=== PATIENT | male | born 1965 | race Caucasian/White ===

== ENCOUNTER 2021-12-24 09:17 | Emergency (ER) | payer OTHER, SELFPAY ==
--- NOTE | ~2021-12-24 | XR_ITS ---
EXAMINATION: XR CHEST CLINICAL INFORMATION: Cough. COMPARISON: None TECHNIQUE: 2 views of the chest were obtained. FINDINGS: No significant abnormality is noted involving the heart, lungs, mediastinum, bony thorax or soft tissues. XR/XR chest 2V IMPRESSION: No acute cardiopulmonary process.
[2021-12-24 09:19] VITALS: BP 155/88; PULSE 106; RESP 22; TEMP 36.7; O2SAT 95; BMI 28.0
--- NOTE | 2021-12-24 09:36 | ED.ASTHMA ---
HPI - Asthma General Chief Complaint: Asthma Stated Complaint: asthma/chest pains Time Seen by Provider: 12/24/21 09:36 History of Present Illness HPI Narrative: Patient complains of asthma, wheezing, shortness of breath, recent illness with cough and body aches and sore throat, he does have pain in his chest only with cough he has no pleuritic pain, he has no exertional pain and there is no other chest pain, right now he is not short of breath as he took albuterol treatment just prior to arrival from his machine Related Data Previous Rx's Medication Instructions Recorded acetaminophen 500 mg tablet 1,000 mg PO QID PRN #30 tab 12/24/21 azithromycin 250 mg tablet See Rx Instructions .ROUTE 12/24/21 (Zithromax Z-Lanre) .COMPLEX #6 tab hydrocodone-homatropine 5 mg-1.5 5 ml PO Q6H PRN #75 ml 12/24/21 mg/5 mL (5 mL) oral syrup (Hycodan) prednisone 20 mg tablet 60 mg PO DAILY 5 Days #15 tab 12/24/21 Allergies Allergy/AdvReac Type Severity Reaction Status Date / Time No Known Allergies Allergy Unverified 06/06/20 19:09 [No Known Allergies*] Review of Systems Review of Systems: Positive for productive cough, body aches, runny nose, pain and chest only with cough, frequent wheezing typical of asthma Negatives are no dizziness no weakness no headache no fainting no feeling faint no stiff neck no pleuritic chest pain no exertional chest pain no palpitations no abdominal pain no nausea vomiting or diarrhea no dysuria no leg swelling no calf pain or swelling, no skin rash, no weakness or numbness Yes all other systems are reviewed and are negative [facility] Past Medical History Source: nursing notes reviewed Medical History (Updated 12/24/21 @ 11:29 by MAGUI Cline) Asthma Back pain HTN (hypertension) Umbilical hernia Social History Social History Advance Directives: No Advance Directives Information Provided: Yes Physical Exam Vital Signs: Vital Signs: Last Vital Signs Temp 98.0 F 12/24/21 09:19 Pulse 79 12/24/21 09:55 Resp 18 12/24/21 09:55 BP 155/88 H 12/24/21 09:19 Pulse Ox 95 12/24/21 09:19 BMI result Body Mass Index 28.0 General appearance is comfortable no acute distress The eyes no redness or discharge The pharynx no redness swelling or exudate, membranes moist Neck is supple The chest has decreased breath sounds bilaterally no obvious wheezing no respiratory distress, no pain with deep breath The heart no murmur The abdomen soft nontender Extremities full range of motion x4 without any edema No calf tenderness or swelling Neuro no focal deficits Course Course Course Narrative: Patient with upper respiratory symptoms and asthma with frequent productive cough, chest pain only when he coughs, no shortness of breath now but has been using his machine frequently over the last 3 days EKG was done with normal sinus rhythm rate of 94, normal intervals, no acute ST elevations, small Q-waves were noted in 2 3 and AVF, but no acute ischemic changes EKG was reviewed with attending physician britta or agrees no evidence of acute [place], and story is not consistent with a cardiac cause, frequent productive cough body aches and only chest pain is with coughing no other chest pain Chest x-ray was negative COVID test and flu test were negative Patient got a treatment and had decreased coughing and improved respiration, on exam his lungs soundswere now clear and full no longer diminished, vital signs were all normal he was not tachycardic or tachypneic, breathing comfortably, and he was discharged with treatment for asthma and bronchitis MDM - Asthma Lab Data Labs: Lab Results 12/24/21 12/24/21 12/24/21 Range/Units 10:11 10:11 10:11 COVID-19 (INÉS) Negative (Negative) COVID-19 Clin Com See Note Influenza Type A (JOSHUA) Negative (Negative) Influenza Type B (JOSHUA) Negative (Negative) Influenza A & B Note See Note S. pyogenes GrpA JOSHUA Negative (Negative) Discharge Plan Discharge Clinical Impression: Bronchitis, Asthma Patient Disposition: Home, Self-Care Additional Instructions: COVID and flu test were negative, strep test was negative, chest x-ray was normal We are treating asthma with prednisone which reduces inflammation and the lungs We are treating bronchitis with Zithromax antibiotic You can use the narcotic cough syrup which usually helps cough, breathing steam may help to Follow with your doctor Return any time any worse condition or any concerns Prescriptions: New hydrocodone-homatropine [Hycodan] 5-1.5 mg/5 mL (5 mL) syrup 5 ml PO Q6H PRN (Reason: cough) Qty: 75 0RF Rx Instructions: Narcotic, no driving for 6 hours after taking this medication azithromycin [Zithromax Z-Lanre] 250 mg tablet See Rx Instructions .ROUTE .COMPLEX Qty: 6 0RF Rx Instructions: For 250 mg dose pack: take 500 mg today (day 1), then 250 mg for 4 days (days 2-5) prednisone 20 mg tablet 60 mg PO DAILY 5 Days Qty: 15 0RF acetaminophen 500 mg tablet 1,000 mg PO QID PRN (Reason: pain) Qty: 30 0RF Interventions: ED Discharge Assessment Last Done: 12/24/21 12:22 Discharge Date/Time: 12/24/21 12:23
--- NOTE | 2021-12-24 09:38 | ECG_ITS ---
Test Reason : CHEST PAIN Blood Pressure : / mmHG Vent. Rate : 094 BPM Atrial Rate : 094 BPM P-R Int : 156 ms QRS Dur : 092 ms QT Int : 350 ms P-R-T Axes : 023 033 018 degrees QTc Int : 437 ms Normal sinus rhythm Possible Inferior infarct , age undetermined Abnormal ECG No previous ECGs available Referred By: Donte Robles Electronically Signed By:LINSEY PENNINGTON MD
[2021-12-24] MEDS: Albuterol/Iprat 2.5/0.5MG 3 ML AMPUL.NEB INHALE (09:54)
[2021-12-24 09:55] VITALS: PULSE 79; RESP 18; O2SAT 97
[2021-12-24 10:35] LABS: IDNOW Serial# 16C4AD1C
[2021-12-24 10:36] LABS: COVID-19 Test Negative (Negative); IDNOW Serial# 08D9AD1C; Strep A Nucleic Acid Negative (Negative)
[2021-12-24 10:51] LABS: IDNOW Serial# 08D9AD1C; Influenza A Negative (Negative); Influenza B2 Negative (Negative)
[2021-12-24] MEDS: predniSONE 20 MG TABLET 60 MG PO (11:11)
== END 2021-12-24 12:23 | disposition home or self-care (01) ==
PROVIDERS: Physician Assistant Medical; Emergency Provider Emergency Medicine Emergency Medical Services; PCP Physician Assistant
DX: J40 Bronchitis, not specified as acute or chronic (principal); R07.9 Chest pain, unspecified; R06.02 Shortness of breath; Z20.822 Contact with and (suspected) exposure to COVID-19; Z79.899 Other long term (current) drug therapy
CPT/HCPCS: 36415; 71046; 87502; 87635; 87651; 93005; 94640; 99283; 99284

== ENCOUNTER 2021-12-28 11:53 | Inpatient (IN) | payer OTHER, SELFPAY ==
[2021-12-28] VITALS (8 sets, daily range): BP systolic 126–140; BP diastolic 63–79; PULSE 74–100; RESP 16–22; TEMP 36.6–37.1; O2SAT 86–98; BMI 28.0
--- NOTE | ~2021-12-28 | XR_ITS ---
EXAMINATION: CHEST 2 VIEWS CLINICAL INFORMATION: COUGH SOB . COMPARISON: . TECHNIQUE: PA and lateral views of the chest obtained. FINDINGS: The lungs are mildly hypoexpanded. No focal infiltrate, effusion, edema, or pneumothorax. Cardiac and mediastinal silhouettes are within normal limits for technique. No acute bony abnormality seen XR/XR chest 2V IMPRESSION: No evidence of acute disease
--- NOTE | ~2021-12-28 | CT_ITS ---
EXAMINATION: CT CHEST WITH CONTRAST CLINICAL INFORMATION: Cough and shortness of breath COMPARISON: None TECHNIQUE: Multidetector volumetric CT imaging of the chest was obtained after the administration of 65 mL of Omnipaque 350 intravenous contrast without immediate adverse reactions. Axial MIP volume rendering provided. Sagittal and coronal reformatted images were obtained. This CT examination was performed using dose optimization techniques as appropriate, variously including the following: *Automated exposure control *Adjustment of mA and/or kV according to patient size (this includes techniques or standardized protocols for targeted exams where dose is matched to indication/reason for exam; i.e. extremities or head) *Use of iterative reconstruction technique DLP: 337 mGy-cm FINDINGS: LUNGS: Trachea and central airway are patent. There are dependent changes in the posterior aspect of bilateral lungs. No dense consolidation is seen. 3 mm nodule right upper lobe image 5:265 MEDIASTINUM: Visualized thyroid gland appears unremarkable. No adenopathy seen in the mediastinum or michele. Normal caliber aorta. Normal heart size. No pericardial effusion.. PLEURA: There is no pleural effusion. No pleural mass or thickening. AXILLA: No lymphadenopathy. UPPER ABDOMEN: Low-attenuation liver suggesting hepatic steatosis. No acute findings otherwise seen. OSSEOUS STRUCTURES: No acute or suspicious osseous abnormality. CT/CT chest w con IMPRESSION: 1. No evidence of acute consolidation. Dependent changes in the posterior aspect of bilateral lungs. 2. Right upper lobe 3 mm nodule. According to the UPDATED 2017 Fleischner Society recommendations, the advised follow-up imaging for solid nodules < 6 mm is: LOW RISK PATIENT: No routine follow-up. HIGH RISK PATIENT: Optional CT at 12 months. Fleischner guidelines were followed. 3. Hepatic steatosis.
--- NOTE | 2021-12-28 12:39 | PC.NURSE ---
pt presents to ED after being seen here on 12/24/2021. Pt at bedside, pt sts symptoms have worsened, cough is persistent, SpO2 93% on RA, MAGUI Martini aware. Pt alert, oriented able to follow commands, wheezing audible on anterior/posterior chest, and bronchus. pt stated he has been unable to sleep due to cough.
--- NOTE | 2021-12-28 13:05 | ED.URI ---
HPI - URI/Sore Throat General Chief Complaint: Upper Respiratory Symptoms Stated Complaint: Asthma Time Seen by Provider: 12/28/21 12:27 Source: patient Mode of arrival: ambulatory Limitations: no limitations History of Present Illness HPI Narrative: 56-year-old male with history of asthma presents to ED for coughing and shortness of breath and chest pain only when he coughs. Patient was seen here on the for asthma exacerbation was discharged with steroids and cough medication but states no improvement. Patient denies any leg swelling, calf pain, coughing up blood, recent long travel, recent surgery, or pleuritic chest pain. Related Data Home Medications Medication Instructions Recorded Confirmed albuterol sulfate 90 mcg/actuation 2 puff PO Q4H PRN 12/28/21 aerosol inhaler (Ventolin HFA) amlodipine 2.5 mg tablet 1 tab PO DAILY 12/28/21 docusate sodium 100 mg capsule 2 cap PO BEDTIME 12/28/21 fluticasone propionate 230 2 puff PO BID 12/28/21 mcg-salmeterol 21 mcg/actuation HFA inhaler (Advair HFA) fluticasone propionate 50 1 spray INTRANASAL DAILY 12/28/21 mcg/actuation nasal spray,suspension levocetirizine 5 mg tablet 1 tab PO QPM 12/28/21 montelukast 10 mg tablet 1 tab PO BEDTIME 12/28/21 naproxen 500 mg tablet 500 mg PO BID 12/28/21 quetiapine 100 mg tablet 1 tab PO BEDTIME 12/28/21 rosuvastatin 10 mg tablet 1 tab PO BEDTIME 12/28/21 rosuvastatin 20 mg tablet 1 tab PO BEDTIME 12/28/21 topiramate 50 mg tablet 1 tab PO BEDTIME 12/28/21 umeclidinium 62.5 mcg/actuation 1 puff PO DAILY 12/28/21 blister powder for inhalation (Incruse Ellipta) Previous Rx's Medication Instructions Recorded acetaminophen 500 mg tablet 1,000 mg PO QID PRN #30 tab 12/24/21 azithromycin 250 mg tablet See Rx Instructions .ROUTE 12/24/21 (Zithromax Z-Lanre) .COMPLEX #6 tab hydrocodone-homatropine 5 mg-1.5 5 ml PO Q6H PRN #75 ml 12/24/21 mg/5 mL (5 mL) oral syrup (Hycodan) prednisone 20 mg tablet 60 mg PO DAILY 5 Days #15 tab 12/24/21 Allergies Allergy/AdvReac Type Severity Reaction Status Date / Time No Known Allergies Allergy Unverified 06/06/20 19:09 [No Known Allergies*] Review of Systems Review of Systems: Coughing with white phlegm. Shortness of breath Yes all other systems are reviewed and are negative [facility] Past Medical History Medical History Asthma Back pain HTN (hypertension) Umbilical hernia Social History Social History Advance Directives: No Advance Directives Information Provided: No Physical Exam Vital Signs: Vital Signs: Last Vital Signs Temp 98.1 F 12/28/21 16:58 Pulse 88 12/28/21 16:58 Resp 16 12/28/21 16:58 BP 126/63 12/28/21 16:58 Pulse Ox 93 12/28/21 16:58 BMI result Body Mass Index 28.0 Const: General: cooperative, healthy appearing, comfortable, no acute distress, well developed, alert, awake and Physically active Orientation/consciousness: oriented to time and patient oriented x3 HEENT: Head: Yes normal to inspection, Yes No palpable skull fracture present, Yes normocephalic and Yes atraumatic Eyes: General: appearance normal, both eyes and all related structures Neck: Neck: Yes normal visual inspection, Yes full ROM, Yes no lymphadenopathy, Yes no meningeal signs, Yes trachea midline, Yes supple and No anterior neck swelling Chest: Chest palpation & inspection: normal inspection of the chest and normal palpation of entire chest wall Resp: Effort & Inspection: normal respiratory effort and able to speak in complete sentences Auscultation: wheezes expiratory wheezes (Diffuse) Cardio: Jugular venous distension: no JVD Heart sounds: S1 normal heart sound present and S2 normal heart sound present GI: Inspection: Yes normal to inspection and No abdominal wall ecchymosis Palpation (GI): Soft to palpation, not firm, nontender, no guarding and not rigid : General: No CVA tenderness and Yes no CVA tenderness Back/Spine/Pelvis: Back: no CVA tenderness, No CVA tenderness and No back tenderness Skin: General skin exam: no rashes or lesions noted, elasticity normal and turgor normal Neuro: General: oriented to time, patient oriented x3, gait normal and no meningeal signs Cranial nerves: Yes CN's II-XII intact bilaterally Extrem: Other: Bilateral lower extremities negative for swelling, pitting edema, or calf tenderness General: Yes normal to inspection and Yes full ROM Psych: Appearance: grossly normal, well kempt and not disheveled Course Course Course Narrative: O2 saturation dropped wants to 93%. On room air at rest O2 saturation on the monitor 97 98%. Chest x-ray initially normal. Will do SARS. Labs ordered. Albuterol, magnesium, Solu-Medrol ordered. We will re-evaluate. Reevaluation(s) Reevaluation #1: Patient to be admitted for asthma exacerbation. Patient multiple episodes of desaturation at rest to 92 and 93% with constant wheezing. On ambulatory O2 saturation oxygen went down to 94%. Once patient's cough oxygen desaturation to 92%. EKG negative STEMI. Troponin negative. BNP negative for heart failure. Chest x-ray normal. D-dimer and Wells score 0. Hospitalist recommend chest CT to check for interstitial disease. Patient admitted. Patient's SARS swab negative Time: 18:39 MDM - URI/Sore Throat MDM Narrative Medical decision making narrative: Asthma exacerbation Lab Data Result diagrams: 12/28/21 13:24 12/28/21 14:09 Labs: Lab Results 12/28/21 12/28/21 12/28/21 Range/Units 13:24 13:24 13:24 WBC 8.3 (4.8-10.8) X10*3/uL RBC 5.47 (4.60-5.80) X10*6/uL Hgb 16.6 (14.0-18.0) g/dl Hct 48.8 (42.0-52.0) % MCV 89.2 (80.0-98.0) fL MCH 30.3 (27.0-33.0) pg MCHC 34.0 (31.0-36.0) g/dl RDW 12.8 (11.0-16.0) % Plt Count 228 (160-400) X10*3/uL MPV 9.9 (9.4-12.4) fL Immature Gran % (Auto) 0.5 H (0.0-0.4) % Neut % (Auto) 91.6 H (45-73) % Lymph % (Auto) 5.9 L (20-40) % [place] % (Auto) 1.9 L (2-11) % Eos % (Auto) 0.0 (0-4) % Baso % (Auto) 0.1 (0-2) % Lymph # (Auto) 0.5 L (1.2-4.9) X10*3/uL [place] # (Auto) 0.2 (0.1-1.2) X10*3/uL Eos # (Auto) 0.0 (0.0-0.4) X10*3/uL Baso # (Auto) 0.0 (0.0-0.2) X10*3/uL Abs Immat Gran (auto) 0.04 H (0.00-0.03) X10*3/uL Absolute Neuts (auto) 7.6 (2.0-8.3) x10*3/uL Absolute Nucleated RBC 0.000 (0.0-0.012) X10*3/uL Nucleated RBC % (auto) 0.0 (0.0-0.2) /100WBC Smear Tech's Comments VERIFIED PT (9.9-13.0) SEC INR (0.9-1.1) APTT (24.1-38.0) SEC D-Dimer High Sensitivty NG/ML Sodium (135-145) mmol/L Potassium (3.3-5.1) mmol/L Chloride (96-108) mmol/L Carbon Dioxide (22-29) mmol/L Anion Gap (12-20) BUN (9-16) mg/dL Creatinine (0.5-1.4) mg/dL Estim Creat Clear Calc Estimated GFR Random Glucose (60-115) mg/dL Calcium (8.4-10.2) mg/dL Total Bilirubin (0.0-1.0) mg/dL AST (5-37) U/L ALT (0-40) U/L Alkaline Phosphatase (39-117) U/L Troponin I High Sens < 3.5 (<3.5-35.0) ng/L B-Natriuretic Peptide 29 (<100) pg/mL Total Protein (6.5-8.0) g/dL Albumin (3.5-5.0) g/dL Influenza Type A (PCR) NEGATIVE (Negative) Influenza Type B (PCR) NEGATIVE (Negative) RSV RNA Qual (PCR) NEGATIVE (Negative) SARS-CoV-2 RNA (RT-PCR) NEGATIVE (Negative) 12/28/21 12/28/21 Range/Units 13:24 14:09 WBC (4.8-10.8) X10*3/uL RBC (4.60-5.80) X10*6/uL Hgb (14.0-18.0) g/dl Hct (42.0-52.0) % MCV (80.0-98.0) fL MCH (27.0-33.0) pg MCHC (31.0-36.0) g/dl RDW (11.0-16.0) % Plt Count (160-400) X10*3/uL MPV (9.4-12.4) fL Immature Gran % (Auto) (0.0-0.4) % Neut % (Auto) (45-73) % Lymph % (Auto) (20-40) % [place] % (Auto) (2-11) % Eos % (Auto) (0-4) % Baso % (Auto) (0-2) % Lymph # (Auto) (1.2-4.9) X10*3/uL [place] # (Auto) (0.1-1.2) X10*3/uL Eos # (Auto) (0.0-0.4) X10*3/uL Baso # (Auto) (0.0-0.2) X10*3/uL Abs Immat Gran (auto) (0.00-0.03) X10*3/uL Absolute Neuts (auto) (2.0-8.3) x10*3/uL Absolute Nucleated RBC (0.0-0.012) X10*3/uL Nucleated RBC % (auto) (0.0-0.2) /100WBC Smear Tech's Comments PT 11.8 (9.9-13.0) SEC INR 1.0 (0.9-1.1) APTT 26.9 (24.1-38.0) SEC D-Dimer High Sensitivty < 150 NG/ML Sodium 138 (135-145) mmol/L Potassium 4.8 (3.3-5.1) mmol/L Chloride 108 (96-108) mmol/L Carbon Dioxide 21 L (22-29) mmol/L Anion Gap 14 (12-20) BUN 13 (9-16) mg/dL Creatinine 1.11 (0.5-1.4) mg/dL Estim Creat Clear Calc 78.8 Estimated GFR > 60 Random Glucose 139 H (60-115) mg/dL Calcium 9.3 (8.4-10.2) mg/dL Total Bilirubin 0.8 (0.0-1.0) mg/dL AST 45 H (5-37) U/L ALT 84 H (0-40) U/L Alkaline Phosphatase 134 H (39-117) U/L Troponin I High Sens (<3.5-35.0) ng/L B-Natriuretic Peptide (<100) pg/mL Total Protein 7.5 (6.5-8.0) g/dL Albumin 4.6 (3.5-5.0) g/dL Influenza Type A (PCR) (Negative) Influenza Type B (PCR) (Negative) RSV RNA Qual (PCR) (Negative) SARS-CoV-2 RNA (RT-PCR) (Negative) ECG Data Interpretation: Normal sinus rhythm. Normal EKG. Ventricular rate 85. Pr interval 154. QRS 86 pr QTC 428. Negative STEMI Discharge Plan Discharge Clinical Impression: Asthma Patient Disposition: Admitted As Inpatient
[2021-12-28] MEDS: Albuterol/Iprat 2.5/0.5MG 3 ML AMPUL.NEB INHALE ×2 (13:12→21:01)
[2021-12-28] MEDS: guaiFEN/Codeine SF 200/20/10ML 10 ML LIQUID PO (13:26)
[2021-12-28] MEDS: methylPREDNISolone Sod Succ 125 MG/2 ML VIAL IVPUSH (13:29)
[2021-12-28 13:31] LABS: Basophils Percent Auto 0.1 % (0-2); Hematocrit 48.8 % (42.0-52.0); Hemoglobin 16.6 g/dl (14.0-18.0); Imm Gran Abs Auto 0.04 X10*3/uL (0.00-0.03); Imm Gran Pct Auto 0.5 % (0.0-0.4); Lymphocytes Absolute Auto 0.5 X10*3/uL (1.2-4.9); Lymphocytes Percent Auto 5.9 % (20-40); MANUAL DIFF FLAG SCAN; Mean Corpuscular Hemoglobin 30.3 pg (27.0-33.0); Mean Corpuscular Volume 89.2 fL (80.0-98.0); Mean Platelet Volume 9.9 fL (9.4-12.4); Monocytes Absolute Auto 0.2 X10*3/uL (0.1-1.2); Monocytes Percent Auto 1.9 % (2-11); Neutrophils Absolute Auto 7.6 x10*3/uL (2.0-8.3); Neutrophils Percent Auto 91.6 % (45-73); Platelet Count 228 X10*3/uL (160-400); Red Blood Count 5.47 X10*6/uL (4.60-5.80); Red Cell Distribution Width 12.8 % (11.0-16.0); SCAN SMEAR FLAG 1; White Blood Count 8.3 X10*3/uL (4.8-10.8)
[2021-12-28 13:36] LABS: Prothrombin Time 11.8 SEC (9.9-13.0)
[2021-12-28 13:39] LABS: Partial Thromboplastin Time 26.9 SEC (24.1-38.0)
--- NOTE | 2021-12-28 13:41 | ECG_ITS ---
Test Reason : SOB Blood Pressure : / mmHG Vent. Rate : 085 BPM Atrial Rate : 085 BPM P-R Int : 154 ms QRS Dur : 086 ms QT Int : 360 ms P-R-T Axes : 028 025 020 degrees QTc Int : 428 ms Normal sinus rhythm Normal ECG When compared with ECG of 24-DEC-2021 10:19, No significant change was found Referred By: Gregorio Martini Electronically Signed By:Sly Galan
[2021-12-28] MEDS: Magnesium Sulfate/H2O 2 GM/50 ML PIGGYBACK IV (13:42)
[2021-12-28 13:48] LABS: SLIDE REVIEW VERIFIED
[2021-12-28 13:53] LABS: B Type Natriuretic Peptide 29 pg/mL (<100); Troponin-I High Sensitivity < 3.5 ng/L (<3.5-35.0)
[2021-12-28 14:19] LABS: Influenza A PCR NEGATIVE (Negative); Influenza B PCR NEGATIVE (Negative); Resp Syncy Virus RNA Qual PCR NEGATIVE (Negative); SARS COV2 PCR INHOUSE NEGATIVE (Negative)
[2021-12-28 14:30] LABS: Alanine Aminotransferase 84 U/L (0-40); Albumin Level 4.6 g/dL (3.5-5.0); Alkaline Phosphatase 134 U/L (39-117); Anion Gap 14 (12-20); Aspartate Amino Transferase 45 U/L (5-37); Bilirubin Total 0.8 mg/dL (0.0-1.0); Blood Urea Nitrogen 13 mg/dL (9-16); Calcium 9.3 mg/dL (8.4-10.2); Carbon Dioxide 21 mmol/L (22-29); Chloride 108 mmol/L (96-108); Creatinine Clr Calc Pharmacy 78.8; Estimated Glomerular Filt Rate > 60; Glucose Random 139 mg/dL (60-115); Potassium 4.8 mmol/L (3.3-5.1); Sodium 138 mmol/L (135-145); Total Protein 7.5 g/dL (6.5-8.0)
[2021-12-28 14:53] LABS: D Dimer High Sensitivity < 150 NG/ML
[2021-12-28] MEDS: Albuterol Sulfate (0.083%) 2.5 MG/3 ML VIAL.NEB 5 MG INHALE (15:02)
--- NOTE | 2021-12-28 18:20 | PM.IMHP ---
History of Present Illness Date of Service: 12/28/21 Chief Complaint: Coughing spells, wheezing A 56 years old male with recent diagnosis of asthma post COVID vaccine who presents to the hospital for 2nd time complaining of dyspnea wheezing with persistent cough. The patient reported he has been having symptoms of asthma since he talk the COVID vaccine back in January 2022 and has been using steroids, and inhalers at home with no relief as he is having cough that has been persistent for the last 2 weeks associated with dyspnea on exertion and shortness of breath. He denies any fever, chills, chest pain, palpitation, nausea or vomiting or change in bowel habit, no urinary symptoms. Today he came to the hospital as his symptoms got worse and he cannot sleep because of all the coughing he is having. In the emergency he received breathing treatment with no improvement so he was admitted for observation. Review of Systems Review of Systems: No fever, chills but reports feeling distressed No chest pain, palpitation Reporting dyspnea on exertion and recurrent bouts of coughing No abdominal pain, nausea or vomiting No urinary symptoms No any rash or wounds PMFSH Medical History Asthma Back pain HTN (hypertension) Umbilical hernia Social History Advance Directives: No Advance Directives Information Provided: No Meds Allergies Allergy/AdvReac Type Severity Reaction Status Date / Time No Known Allergies Allergy Unverified 06/06/20 19:09 [No Known Allergies*] Active Medications: Current Medications Pharmacy Consult (Consult Rx Perform Med Rec) 1 each MISCELLANE ONCE PRN PRN Reason: Consult order Home Medications Medication Instructions Recorded Confirmed Last Taken Type acetaminophen 650 mg 1 tab PO BID 12/28/21 12/28/21 12/28/21 History tablet,extended release (Mapap Arthritis Pain) albuterol sulfate 3 ml INHALATION Q6H PRN 12/28/21 12/28/21 Unknown History albuterol sulfate 90 mcg/actuation 2 puff PO Q4H PRN 12/28/21 12/28/21 Unknown History aerosol inhaler (Ventolin HFA) amlodipine 2.5 mg tablet 1 tab PO DAILY 12/28/21 12/28/21 12/28/21 History docusate sodium 100 mg capsule 2 cap PO BEDTIME 12/28/21 12/28/21 12/27/21 History esomeprazole magnesium 40 mg 1 cap PO DAILY@0630 12/28/21 12/28/21 12/28/21 History capsule,delayed release fluticasone propionate 230 2 puff PO BID 12/28/21 12/28/21 12/28/21 History mcg-salmeterol 21 mcg/actuation HFA inhaler (Advair HFA) fluticasone propionate 50 1 spray INTRANASAL DAILY 12/28/21 12/28/21 12/28/21 History mcg/actuation nasal spray,suspension gabapentin 300 mg capsule 1 cap PO BID 12/28/21 12/28/21 12/28/21 History hydrocortisone 2.5 % topical cream 1 appl SC TID PRN 12/28/21 12/28/21 Unknown History with perineal applicator ketotifen fumarate 0.025 % (0.035 1 drp OPHTHALMIC (EYE) BID 12/28/21 12/28/21 12/28/21 History %) eye drops levocetirizine 5 mg tablet 1 tab PO BEDTIME 12/28/21 12/28/21 12/27/21 History melatonin 3 mg tablet 1 tab PO BEDTIME 12/28/21 12/28/21 12/27/21 History montelukast 10 mg tablet 1 tab PO BEDTIME 12/28/21 12/28/21 12/27/21 History naproxen 500 mg tablet 500 mg PO BID 12/28/21 12/28/21 12/28/21 History quetiapine 100 mg tablet 1 tab PO BEDTIME 12/28/21 12/28/21 12/27/21 History ramelteon 8 mg tablet 8 mg PO BEDTIME PRN 12/28/21 12/28/21 Unknown History rosuvastatin 20 mg tablet 1 tab PO BEDTIME 12/28/21 12/28/21 12/27/21 History sertraline 50 mg tablet 50 mg PO DAILY 12/28/21 12/28/21 12/28/21 History simethicone 125 mg capsule (Gas 1 cap PO Q6H PRN 12/28/21 12/28/21 Unknown History Relief Extra Strength) topiramate 50 mg tablet 1 tab PO BEDTIME 12/28/21 12/28/21 12/27/21 History umeclidinium 62.5 mcg/actuation 1 puff PO DAILY 12/28/21 12/28/21 12/28/21 History blister powder for inhalation (Incruse Ellipta) Physical Exam Vital Signs and Narrative: Vital Signs: Last Vital Signs Temp 98.1 F 12/28/21 16:58 Pulse 88 12/28/21 16:58 Resp 16 12/28/21 16:58 BP 126/63 12/28/21 16:58 Pulse Ox 93 12/28/21 16:58 BMI result Body Mass Index 28.0 Const: Other: Constitutional : Alert, oriented, not in distress Neck : Normal inspection, Supple Cardiovascular : RRR, no JVP, no lower extremity edema Respiratory : fair bilateral air entry, very minimal basal crackles, scattered expiratory wheezes Gastrointestinal: soft, lax, Normal bowel sounds, Non tender Skin : Warm, Dry Neurological : Alert & oriented x3, No focal deficit , CN 2-12 within normal Results Labs CBC and Chem 7: 12/28/21 13:24 12/29/21 07:14 Labs: Laboratory Results - last 24 hr 12/28/21 12/28/21 12/28/21 13:24 13:24 13:24 MCV 89.2 MCH 30.3 MCHC 34.0 RDW 12.8 Plt Count 228 MPV 9.9 Immature Gran % (Auto) 0.5 H Neut % (Auto) 91.6 H Lymph % (Auto) 5.9 L [place] % (Auto) 1.9 L Eos % (Auto) 0.0 Baso % (Auto) 0.1 Lymph # (Auto) 0.5 L [place] # (Auto) 0.2 Eos # (Auto) 0.0 Baso # (Auto) 0.0 Abs Immat Gran (auto) 0.04 H Absolute Neuts (auto) 7.6 Absolute Nucleated RBC 0.000 Nucleated RBC % (auto) 0.0 Smear Tech's Comments VERIFIED PT INR APTT D-Dimer High Sensitivty Anion Gap Estim Creat Clear Calc Estimated GFR Random Glucose Calcium Total Bilirubin AST ALT Alkaline Phosphatase Troponin I High Sens < 3.5 B-Natriuretic Peptide 29 Total Protein Albumin Influenza Type A (PCR) NEGATIVE Influenza Type B (PCR) NEGATIVE RSV RNA Qual (PCR) NEGATIVE SARS-CoV-2 RNA (RT-PCR) NEGATIVE 12/28/21 12/28/21 13:24 14:09 MCV MCH MCHC RDW Plt Count MPV Immature Gran % (Auto) Neut % (Auto) Lymph % (Auto) [place] % (Auto) Eos % (Auto) Baso % (Auto) Lymph # (Auto) [place] # (Auto) Eos # (Auto) Baso # (Auto) Abs Immat Gran (auto) Absolute Neuts (auto) Absolute Nucleated RBC Nucleated RBC % (auto) Smear Tech's Comments PT 11.8 INR 1.0 APTT 26.9 D-Dimer High Sensitivty < 150 Anion Gap 14 Estim Creat Clear Calc 78.8 Estimated GFR > 60 Random Glucose 139 H Calcium 9.3 Total Bilirubin 0.8 AST 45 H ALT 84 H Alkaline Phosphatase 134 H Troponin I High Sens B-Natriuretic Peptide Total Protein 7.5 Albumin 4.6 Influenza Type A (PCR) Influenza Type B (PCR) RSV RNA Qual (PCR) SARS-CoV-2 RNA (RT-PCR) Imaging Radiologist's Impressions: Impressions Chest X-Ray 12/28/21 12:12 IMPRESSION: No evidence of acute disease Assessment and Plan (1) Persistent dry cough: Status: Acute (2) Dyspnea on exertion: Status: Acute (3) Wheezes: Status: Acute Plan A 56 years old male with recent diagnosis of asthma post COVID vaccine who presents to the hospital for 2nd time complaining of dyspnea wheezing with persistent cough. Persistent cough, dyspnea and wheezing Seems to be related to reactive airway disease, inflammatory process You do CT scan the with contrast Your treated with steroids, bronchodilator nebulizers B get pulmonology evaluation Cough medication with codeine and Tessalon Continue the rest of home medication once med reconciliation done DVT PPX Lovenox Quality Stroke Does the patient have a stroke diagnosis?: No VTE Prior VTE?: No VTE Risk Level:: Medical - moderate - high VTE Device Contraindication: Treatment Not Indicated VTE Drug Contraindication: N/A - Med Ordered
[2021-12-28] MEDS: iohexoL 350 MG/ML 100 ML INFUS..BTL IV (18:34)
--- NOTE | 2021-12-28 19:08 | PHA.MEDREC ---
Pharmacy Consult ? Medication Reconciliation Pharmacy has completed the medication reconciliation. Spoke with patient via [facility] in [facility]. Pt has 1 day left of zithromax and prednisone ( 5 day course). Pt states he is on Ramelteon, although no claim history. He states his crestor was recently alont with seroquel. Gabapentin has not been filled since june but patient states he is still taking.
[2021-12-28] MEDS: guaiFEN/Codeine SF 200/20/10ML 10 ML LIQUID 5 ML PO (20:27)
[2021-12-28] MEDS: Enoxaparin Sodium 40 MG/0.4 ML SYRINGE SUBCUT (20:28)
[2021-12-28] MEDS: Benzonatate 100 MG CAPSULE 200 MG PO (20:28)
[2021-12-29 00:33] VITALS: BP 107/56; PULSE 86; RESP 16; TEMP 36.5; O2SAT 96
[2021-12-29] MEDS: guaiFEN/Codeine SF 200/20/10ML 10 ML LIQUID 5 ML PO ×3 (01:58→10:14)
[2021-12-29] MEDS: 0.9 % Sodium Chloride Flush 3 ML SYRINGE IVFLUSH ×2 (01:59→08:57)
[2021-12-29 04:21] VITALS: BP 134/73; PULSE 76; RESP 16; TEMP 36.6; O2SAT 94
[2021-12-29 07:46] LABS: Anion Gap 16 (12-20); Blood Urea Nitrogen 15 mg/dL (9-16); Calcium 9.9 mg/dL (8.4-10.2); Carbon Dioxide 25 mmol/L (22-29); Chloride 106 mmol/L (96-108); Creatinine Clr Calc Pharmacy 75.4; Estimated Glomerular Filt Rate > 60; Glucose Random 121 mg/dL (60-115); Potassium 5.1 mmol/L (3.3-5.1); Sodium 142 mmol/L (135-145)
[2021-12-29] MEDS: Albuterol/Iprat 2.5/0.5MG 3 ML AMPUL.NEB INHALE ×2 (08:36→11:34)
[2021-12-29 08:37] VITALS: PULSE 91; RESP 18; O2SAT 99
[2021-12-29 08:50] VITALS: BP 127/64; PULSE 89; RESP 14; TEMP 36.4; O2SAT 94
[2021-12-29] MEDS: Benzonatate 100 MG CAPSULE 200 MG PO (08:52)
[2021-12-29] MEDS: methylPREDNISolone Sod Succ 40 MG/ML VIAL IVPUSH (08:52)
[2021-12-29] MEDS: Gabapentin 300 MG CAPSULE PO (08:52)
[2021-12-29] MEDS: predniSONE 20 MG TABLET 60 MG PO (08:52)
[2021-12-29] MEDS: amLODIPine Besylate 2.5 MG TABLET PO (08:52)
[2021-12-29] MEDS: NaPROXEN 500 MG TABLET PO (08:52)
[2021-12-29] MEDS: Sertraline HCL 50 MG TABLET PO (08:52)
[2021-12-29] MEDS: Ketotifen Fumarate 0.025% Oph 5 ML DRPBTL 1 DROP EYE-BOTH (10:14)
[2021-12-29] MEDS: Fluticasone Propionate Nasal 16 GM SPRAY 1 SPRAY NOSTRIL-B (10:14)
[2021-12-29 11:36] VITALS: PULSE 84; RESP 18; O2SAT 96
--- NOTE | 2021-12-29 12:47 | PM.DS ---
DS: Providers Provider Date of Service: 12/29/21 Date of admission: 12/28/21 18:15 Primary care physician: Unknown Physician Consults: 12/28/21 18:15 Consult to Pulmonology Routine Consulting Provider: Chiara Pereira Reason for consultation: Persistent cough, asthma like symptoms post COVID vaccine DS: Diagnosis Discharge Diagnosis (1) Persistent dry cough: Status: Acute (2) Dyspnea on exertion: Status: Acute (3) Wheezes: Status: Acute DS: Summary Hospital Course Hospital Course: Admission note HPI A 56 years old male with recent diagnosis of asthma post COVID vaccine who presents to the hospital for 2nd time complaining of dyspnea wheezing with persistent cough.? The patient reported he has been having symptoms of asthma since he talk the COVID vaccine back in January 2022 and has been using steroids, and inhalers at home with no relief as he is having cough that has been persistent for the last 2 weeks associated with dyspnea on exertion and shortness of breath.? He denies any fever, chills, chest pain, palpitation, nausea or vomiting or change in bowel habit, no urinary symptoms.? Today he came to the hospital as his symptoms got worse and he cannot sleep because of all the coughing he is having. In the emergency he received breathing treatment with no improvement so he was admitted for observation. Hospital course The patient was admitted for observation for persistent cough and wheezing. He was treated with IV steroids, bronchodilator nebulizers and cough medication with good response as the cough improved a little in the wheezes resolved. He maintained oxygen level stable on room. Discussed with pulmonology specialist who recommended outpatient follow-up with pulmonology for pulmonary function test. Time Spent with Patient Time attestation: Total time spent providing and/or coordinating discharge services: Discharge coordination time: Less than 30 minutes Quality: Safe Use of Opioids Does Pt have an Active Cancer Diagnosis on the Problem List?: No Quality: Stroke Does the patient have a stroke diagnosis?: No Physical Exam Vital Signs: Vital Signs: Last Vital Signs Temp 97.6 F 12/29/21 08:50 Pulse 84 12/29/21 11:36 Resp 18 12/29/21 11:36 BP 127/64 12/29/21 08:50 Pulse Ox 94 12/29/21 08:50 BMI result Body Mass Index 28.0 Const: Other: Constitutional : Alert, oriented, not in distress Neck : Normal inspection, Supple Cardiovascular : RRR, no JVP, no lower extremity edema Respiratory : fair bilateral air entry, no crackles, no wheezes or rhonchi but has recurrent episodes of cough Gastrointestinal: soft, lax, Normal bowel sounds, Non tender Skin : Warm, Dry Neurological : Alert & oriented x3, No focal deficit , CN 2-12 within normal DS: Data Data Completed and Pending Labs on day of discharge: Laboratory Results - last 24 hr 12/28/21 12/28/21 12/28/21 13:24 13:24 13:24 WBC 8.3 RBC 5.47 Hgb 16.6 Hct 48.8 MCV 89.2 MCH 30.3 MCHC 34.0 RDW 12.8 Plt Count 228 MPV 9.9 Immature Gran % (Auto) 0.5 H Neut % (Auto) 91.6 H Lymph % (Auto) 5.9 L [place]ois % (Auto) 1.9 L Eos % (Auto) 0.0 Baso % (Auto) 0.1 Lymph # (Auto) 0.5 L [place] # (Auto) 0.2 Eos # (Auto) 0.0 Baso # (Auto) 0.0 Abs Immat Gran (auto) 0.04 H Absolute Neuts (auto) 7.6 Absolute Nucleated RBC 0.000 Nucleated RBC % (auto) 0.0 Smear Tech's Comments VERIFIED PT INR APTT D-Dimer High Sensitivty Sodium Potassium Chloride Carbon Dioxide Anion Gap BUN Creatinine Estim Creat Clear Calc Estimated GFR Random Glucose Calcium Total Bilirubin AST ALT Alkaline Phosphatase Troponin I High Sens < 3.5 B-Natriuretic Peptide 29 Total Protein Albumin Influenza Type A (PCR) NEGATIVE Influenza Type B (PCR) NEGATIVE RSV RNA Qual (PCR) NEGATIVE SARS-CoV-2 RNA (RT-PCR) NEGATIVE 12/28/21 12/28/21 12/29/21 13:24 14:09 07:14 WBC RBC Hgb Hct MCV MCH MCHC RDW Plt Count MPV Immature Gran % (Auto) Neut % (Auto) Lymph % (Auto) Dubois % (Auto) Eos % (Auto) Baso % (Auto) Lymph # (Auto) Dubois # (Auto) Eos # (Auto) Baso # (Auto) Abs Immat Gran (auto) Absolute Neuts (auto) Absolute Nucleated RBC Nucleated RBC % (auto) Smear Tech's Comments PT 11.8 INR 1.0 APTT 26.9 D-Dimer High Sensitivty < 150 Sodium 138 142 Potassium 4.8 5.1 Chloride 108 106 Carbon Dioxide 21 L 25 Anion Gap 14 16 BUN 13 15 Creatinine 1.11 1.16 Estim Creat Clear Calc 78.8 75.4 Estimated GFR > 60 > 60 Random Glucose 139 H 121 H Calcium 9.3 9.9 D Total Bilirubin 0.8 AST 45 H ALT 84 H Alkaline Phosphatase 134 H Troponin I High Sens B-Natriuretic Peptide Total Protein 7.5 Albumin 4.6 Influenza Type A (PCR) Influenza Type B (PCR) RSV RNA Qual (PCR) SARS-CoV-2 RNA (RT-PCR) Discharge Plan Discharge Patient Disposition: Home, Self-Care Discharge Diagnosis: Persistent cough, asthma attack Referrals: Physician,Unknown J [Primary Care Provider] - 1 Week Discharge Medications: New benzonatate 100 mg Capsule 200 mg PO TID Qty: 60 0RF codeine-guaifenesin 10-100 mg/5 mL Liquid 5 ml PO Q4H Qty: 237 0RF Continued amlodipine 2.5 mg tablet 1 tab PO DAILY 0RF quetiapine 100 mg tablet 1 tab PO BEDTIME 0RF docusate sodium 100 mg capsule 2 cap PO BEDTIME 0RF montelukast 10 mg tablet 1 tab PO BEDTIME 0RF albuterol sulfate [Ventolin HFA] 90 mcg/actuation HFA aerosol inhaler 2 puff PO Q4H PRN (Reason: wheezing) 0RF fluticasone propionate 50 mcg/actuation spray,suspension 1 spray intranasal DAILY 0RF naproxen 500 mg tablet 500 mg PO BID 0RF rosuvastatin 20 mg tablet 1 tab PO BEDTIME 0RF topiramate 50 mg tablet 1 tab PO BEDTIME 0RF Advair HFA 230-21 mcg/actuation HFA aerosol inhaler 2 puff PO BID 0RF levocetirizine 5 mg tablet 1 tab PO BEDTIME 0RF Incruse Ellipta 62.5 mcg/actuation blister with device 1 puff PO DAILY 0RF albuterol sulfate 2.5 mg /3 mL (0.083 %) solution for nebulization 3 ml inhalation Q6H PRN (Reason: wheezing) 0RF ketotifen fumarate 0.025 % (0.035 %) drops 1 drp ophthalmic (eye) BID 0RF simethicone [Gas Relief Extra Strength] 125 mg capsule 1 cap PO Q6H PRN (Reason: Indigestion) 0RF melatonin 3 mg tablet 1 tab PO BEDTIME 0RF acetaminophen [Mapap Arthritis Pain] 650 mg tablet extended release 1 tab PO BID 0RF hydrocortisone 2.5 % cream with perineal applicator [address] TID PRN (Reason: Hemorrhoids) 0RF esomeprazole magnesium 40 mg capsule,delayed release(DR/EC) 1 cap PO DAILY@0630 0RF gabapentin 300 mg capsule 1 cap PO BID 0RF sertraline 50 mg Tablet 50 mg PO DAILY 0RF ramelteon 8 mg Tablet 8 mg PO BEDTIME PRN (Reason: Sleep) 0RF azithromycin [Zithromax Z-Lanre] 250 mg tablet See Rx Instructions .ROUTE .COMPLEX Qty: 6 0RF Rx Instructions: For 250 mg dose pack: take 500 mg today (day 1), then 250 mg for 4 days (days 2-5) until 12/29/21 prednisone 20 mg tablet 60 mg PO DAILY 5 Days Qty: 15 0RF Rx Instructions: until 12/29/21 Discharge Orders: Discharge Order (Routine); Ordered 12/29/21 Ordered By: Umair Rosenthal Diet: advance to usual diet Activity on Discharge: As tolerated Stand Alone Forms: Patient Portal Discharge page Care Plan Goals: Read below Health Concerns: Read below Plan of Treatment: Read below Assessment: You were admitted to the hospital for observation of asthma attack and persistent cough. Treated with nebulizers, steroids and cough medication with fair response as you were evaluated by lung specialist who recommended outpatient follow-up to do pulmonary function test.
[2021-12-29 12:48] VITALS: BP 146/73; PULSE 91; RESP 16; TEMP 36.8; O2SAT 94
--- NOTE | 2021-12-29 13:31 | P.CONPL_ITS ---
History of Present Illness History of Present Illness Consult date: 12/29/21 Requesting physician: Umair Rosenthal Chief complaint: Pesistent cough, shortness of breath Narrative: Patient has left before being physically evaluated. Chart and imaging reviewed. 56-year-old gentleman, with no prior pulmonary history before January of 2021 when he has received his COVID vaccine and after that has developed what appears to be reactive airway disease symptomatic with nonproductive cough treated with inhaled corticosteroids and bronchodilators with suboptimal control of his symptoms. His CT chest from this admission shows bilateral 3 mm and under pulmonary nodules and otherwise clear lungs. Review of Systems Review of Systems: Yes Other ( Unable to review as patient has left before actual evaluation) [facility] Past Medical History Medical History Asthma Back pain HTN (hypertension) Umbilical hernia Meds Allergies Allergy/AdvReac Type Severity Reaction Status Date / Time No Known Allergies Allergy Unverified 06/06/20 19:09 [No Known Allergies*] Active Medications: Current Medications Acetaminophen (Acetaminophen 325 Mg Tablet) 650 mg PO Q6H PRN PRN Reason: Pain, Mild (Pain Scale 1-3) Albuterol Sulfate (Albuterol Sulfate (0.083%) 2.5 Mg/3 Ml Vial.Neb) 2.5 mg INHALE Q4H PRN PRN Reason: Wheezing Albuterol/Ipratropium (Albuterol/Iprat 2.5/0.5mg 3 Ml Ampul.Neb) 3 ml INHALE RQ4H WHILE AWAKE [facility] Last Admin: 12/29/21 11:34 Dose: 3 ml Documented by: Amlodipine Besylate (Amlodipine Besylate 2.5 Mg Tablet) 2.5 mg PO DAILY [facility]; Protocol Last Admin: 12/29/21 08:52 Dose: 2.5 mg Documented by: Benzonatate (Benzonatate 100 Mg Capsule) 200 mg PO TID [facility] Last Admin: 12/29/21 08:52 Dose: 200 mg Documented by: Docusate Sodium (Docusate Sodium 100 Mg Capsule) 200 mg PO BEDTIME [facility] Enoxaparin Sodium (Enoxaparin Sodium 40 Mg/0.4 Ml Syringe) 40 mg SUBCUT Q24H [facility] Last Admin: 12/28/21 20:28 Dose: 40 mg Documented by: Fluticasone Propionate (Fluticasone Propionate Nasal 16 Gm [place]) 1 spray NOSTRIL-B DAILY [facility] Last Admin: 12/29/21 10:14 Dose: 1 spray Documented by: Gabapentin (Gabapentin 300 Mg Capsule) 300 mg PO BID [facility] Last Admin: 12/29/21 08:52 Dose: 300 mg Documented by: Guaifenesin/Codeine Phosphate (Guaifen/Codeine Sf 200/20/10ml 10 Ml Liquid) 5 ml PO Q4H [facility] Last Admin: 12/29/21 10:14 Dose: 5 ml Documented by: Hydrocortisone (Hydrocortisone 2.5 % Rectal Cr 30 Gm Tube) 1 appl [facility] TID PRN PRN Reason: Hemorrhoids Ketotifen Fumarate (Ketotifen Fumarate 0.025% Oph 5 Ml Drpbtl) 1 drop EYE-BOTH BID [facility] Last Admin: 12/29/21 10:14 Dose: 1 drop Documented by: Melatonin (Melatonin 3 Mg Tablet) 3 mg PO BEDTIME [facility] Methylprednisolone Sodium Succinate (Methylprednisolone Sod Succ 40 Mg/Ml Vial) 40 mg IVPUSH Q12H [facility] Last Admin: 12/29/21 08:52 Dose: 40 mg Documented by: Montelukast Sodium (Montelukast Sodium 10 Mg Tablet) 10 mg PO BEDTIME [facility] Naproxen (Naproxen 500 Mg Tablet) 500 mg PO BID [facility] Last Admin: 12/29/21 08:52 Dose: 500 mg Documented by: Ondansetron HCl (Ondansetron Hcl 4 Mg/2 Ml Vial) 4 mg IVPUSH Q8H PRN PRN Reason: Nausea and Vomiting Pharmacy Consult (Consult Rx Perform Med Rec) 1 each MISCELLANE ONCE PRN PRN Reason: Consult order Prednisone (Prednisone 20 Mg Tablet) 60 mg PO DAILY [facility] Last Admin: 12/29/21 08:52 Dose: 60 mg Documented by: Quetiapine Fumarate (Quetiapine Fumarate 100 Mg Tablet) 100 mg PO BEDTIME [facility] Sertraline HCl (Sertraline Hcl 50 Mg Tablet) 50 mg PO DAILY [facility] Last Admin: 12/29/21 08:52 Dose: 50 mg Documented by: Sodium Chloride (0.9 % Sodium Chloride Flush 3 Ml Syringe) 3 ml IVFLUSH QSHIFT [facility] Last Admin: 12/29/21 08:57 Dose: 3 ml Documented by: Topiramate (Topiramate 25 Mg Tablet) 50 mg PO BEDTIME [facility] Home Medications Medication Instructions Recorded Confirmed Last Taken Type acetaminophen 650 mg 1 tab PO BID 12/28/21 12/28/21 12/28/21 History tablet,extended release (Mapap Arthritis Pain) albuterol sulfate 3 ml INHALATION Q6H PRN 12/28/21 12/28/21 Unknown History albuterol sulfate 90 mcg/actuation 2 puff PO Q4H PRN 12/28/21 12/28/21 Unknown History aerosol inhaler (Ventolin HFA) amlodipine 2.5 mg tablet 1 tab PO DAILY 12/28/21 12/28/21 12/28/21 History docusate sodium 100 mg capsule 2 cap PO BEDTIME 12/28/21 12/28/21 12/27/21 History esomeprazole magnesium 40 mg 1 cap PO DAILY@0630 12/28/21 12/28/21 12/28/21 History capsule,delayed release fluticasone propionate 230 2 puff PO BID 12/28/21 12/28/21 12/28/21 History mcg-salmeterol 21 mcg/actuation HFA inhaler (Advair HFA) fluticasone propionate 50 1 spray INTRANASAL DAILY 12/28/21 12/28/21 12/28/21 History mcg/actuation nasal spray,suspension gabapentin 300 mg capsule 1 cap PO BID 12/28/21 12/28/21 12/28/21 History hydrocortisone 2.5 % topical cream 1 appl [facility] TID PRN 12/28/21 12/28/21 Unknown History with perineal applicator ketotifen fumarate 0.025 % (0.035 1 drp OPHTHALMIC (EYE) BID 12/28/21 12/28/21 12/28/21 History %) eye drops levocetirizine 5 mg tablet 1 tab PO BEDTIME 12/28/21 12/28/21 12/27/21 History melatonin 3 mg tablet 1 tab PO BEDTIME 12/28/21 12/28/21 12/27/21 History montelukast 10 mg tablet 1 tab PO BEDTIME 12/28/21 12/28/21 12/27/21 History naproxen 500 mg tablet 500 mg PO BID 12/28/21 12/28/21 12/28/21 History quetiapine 100 mg tablet 1 tab PO BEDTIME 12/28/21 12/28/21 12/27/21 History ramelteon 8 mg tablet 8 mg PO BEDTIME PRN 12/28/21 12/28/21 Unknown History rosuvastatin 20 mg tablet 1 tab PO BEDTIME 12/28/21 12/28/21 12/27/21 History sertraline 50 mg tablet 50 mg PO DAILY 12/28/21 12/28/21 12/28/21 History simethicone 125 mg capsule (Gas 1 cap PO Q6H PRN 12/28/21 12/28/21 Unknown History Relief Extra Strength) topiramate 50 mg tablet 1 tab PO BEDTIME 12/28/21 12/28/21 12/27/21 History umeclidinium 62.5 mcg/actuation 1 puff PO DAILY 12/28/21 12/28/21 12/28/21 History blister powder for inhalation (Incruse Ellipta) Physical Exam Vital Signs: Vital Signs: Last Vital Signs Temp 98.2 F 12/29/21 12:48 Pulse 91 12/29/21 12:48 Resp 16 12/29/21 12:48 BP 146/73 H 12/29/21 12:48 Pulse Ox 94 12/29/21 12:48 BMI result Body Mass Index 28.0 Results Laboratory Findings CBC and BMP: 12/28/21 13:24 12/29/21 07:14 ABG, PT/INR, D-dimer: PT/INR, D-dimer PT 11.8 SEC (9.9-13.0) 12/28/21 13:24 INR 1.0 (0.9-1.1) 12/28/21 13:24 Abnormal lab findings: Abnormal Labs 12/28/21 12/28/21 12/29/21 13:24 14:09 07:14 Immature Gran % (Auto) 0.5 H Neut % (Auto) 91.6 H Lymph % (Auto) 5.9 L [place] % (Auto) 1.9 L Lymph # (Auto) 0.5 L Abs Immat Gran (auto) 0.04 H Carbon Dioxide 21 L Random Glucose 139 H 121 H AST 45 H ALT 84 H Alkaline Phosphatase 134 H Assessment and Plan (1) Persistent dry cough: Status: Acute Plan Impression: Likely reactive airway disease with nonproductive cough as a main symptom with possible GERD component. Recommendations: Outpatient pulmonary follow-up with pulmonary function testing. Procedures Date of Service Date of Service: 12/29/21
== END 2021-12-29 13:15 | disposition home or self-care (01) | DRG 203 ==
LOC: HO.ED 18:40 → HO.EDOVER 18:45
PROVIDERS: Physician Assistant; Admitting Provider Student in an Organized Health Care Education/Training Program; Emergency Provider Emergency Medicine; Visit Provider Student in an Organized Health Care Education/Training Program
DX: J45.909 Unspecified asthma, uncomplicated (principal); Z20.822 Contact with and (suspected) exposure to COVID-19; Z79.51 Long term (current) use of inhaled steroids; Z79.52 Long term (current) use of systemic steroids; Z79.899 Other long term (current) drug therapy
CPT/HCPCS: 0241U; 36415; 71046; 71260; 80048; 80053; 83880; 84484; 85025; 85379; 85610; 85730; 93005; 94640; 96365; 96366; 96375; 99218; 99285; J1650; J2920; J2930; J3475; Q9967

== ENCOUNTER → 2022-01-22 10:34 | Outpatient (BNVA) | payer OTHER, SELFPAY | PROVIDERS: PCP Physician Assistant; Visit Provider Internal Medicine Pulmonary Disease | DX: Z13.89 Encounter for screening for other disorder (principal) ==

== ENCOUNTER → 2022-02-17 09:05 | Outpatient (BNVA) | payer OTHER, SELFPAY | PROVIDERS: PCP Physician Assistant; Visit Provider Hospitalist | DX: J45.909 Unspecified asthma, uncomplicated (principal); R91.1 Solitary pulmonary nodule; R05.3 Chronic cough; K21.9 Gastro-esophageal reflux disease without esophagitis | CPT/HCPCS: 99202 ==